=== PATIENT | male | born 1980 | race Caucasian/White ===

== ENCOUNTER → 2021-08-05 08:37 | Outpatient (CLI) | payer OTHER, SELFPAY ==
--- NOTE | 2021-08-05 | DI.NM.S_ITS ---
PROCEDURE: NM BONE SCAN LIMITED AREA RADIOPHARMACEUTICAL: 18.1 mCi Tc-99m MDP IV. INDICATIONS: PAIN IN LEFT HIP TECHNIQUE: Multiple delayed bone scintigrams of the body part of interest were obtained approximately 3 hours after intravenous injection of Tc-99m MDP. COMPARISON: None. FINDINGS: There is symmetric low-level increased uptake in hips, compatible with mild degenerative joint disease. 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 Recommend radiographic correlation. Dictated by: Karthikeyan Lowery M.D. on 08/05/2021 at 15:38 Approved by: Karthikeyan Lowery M.D. on 08/05/2021 at 15:40
== END ==
PROVIDERS: PCP Student in an Organized Health Care Education/Training Program
DX: M25.552 Pain in left hip (principal); M16.0 Bilateral primary osteoarthritis of hip
CPT/HCPCS: 78300; A9503

== ENCOUNTER 2023-12-29 15:18 | Emergency (ER) | payer OTHER, SELFPAY ==
[2023-12-29 15:25] VITALS: BP 120/77; PULSE 65; RESP 16; TEMP 36.8; O2SAT 100; BMI 28.0
[2023-12-29 15:49] LABS: Add Manual Diff / Slide Review NO; Basophils Absolute Auto 0 /uL (0-100); Basophils Percent Auto 0.2 % (0-2); Eosinophils Absolute Auto 0 /uL (0-450); Eosinophils Percent Auto 0.1 % (2-4); Hemoglobin 14.4 g/dL (13.5-17.5); Lymphocytes Absolute Auto 900 /uL (1100-4500); Mean Corpuscular HGB Conc 34.2 % (30-36); Mean Corpuscular Volume 93.5 fL (80-100); Monocytes Absolute Auto 500 /uL (0-900); Monocytes Percent Auto 3.8 % (3-14); Neutrophils Absolute Auto 11200 /uL (1500-7000); Neutrophils Percent Auto 88.9 % (50-75); Platelet Count 293 X10^3/uL (150-400); Red Blood Cell Count 4.49 X10^6/uL (4.5-5.9); Red Cell Distribution Width 12.3 % (11.6-14.8); White Blood Cell Count 12.6 X10^3/uL (4.5-11.0)
[2023-12-29 15:55] LABS: INR 0.9 (0.9-1.3); Prothrombin Time 10.8 SECONDS (9.4-12.5)
[2023-12-29 15:58] LABS: PTT Partial Thromboplastin Tim 27 SECONDS (25.1-36.5)
[2023-12-29 15:59] LABS: Alanine Aminotransferase 55 IU/L (<50); Albumin 4.8 g/dL (3.5-5.0); Albumin Globulin Ratio 1.7 (1.0-2.8); Alkaline Phosphatase 54 U/L (38-126); Aspartate Aminotransferase 35 IU/L (17-59); BUN Creatinine Ratio 18.1 (6-22); Bilirubin Total 0.7 mg/dL (0.2-1.3); Blood Urea Nitrogen 17 mg/dL (9-20); Calcium 9.2 mg/dL (8.4-10.2); Carbon Dioxide 24 mmol/L (22-32); Chloride 104 mmol/L (98-107); Estimated Glomerular Filt Rate > 60 mL/min (>60); Globulin 2.9 g/dL (1.7-4.1); Glucose 115 mg/dL (70-100); HEMOLYSIS < 15 (0-50); Potassium 4.3 mmol/L (3.4-5.1); Sodium 136 mmol/L (137-145); Total Protein 7.7 g/dL (6.3-8.2)
--- NOTE | 2023-12-29 16:18 | PC.NURSE ---
Pt stated that he noted 2 tablespoons of blood in toilet with bowel movement. Pt reports some abdominal cramping. History of IBS. History of anal fissures. Colonoscopy around age of 18; pt states he has not had a recent colonoscopy.
[2023-12-29] MEDS: PANTOPRAZOLE 40 MG VIAL 80 MG IV (16:55)
--- NOTE | 2023-12-29 17:40 | ED_ITS ---
HPI - GI Bleed General Chief complaint: GI Bleed Stated complaint: snt by [facility], cramps, hot flashes, red bm Time Seen by Provider: 12/29/23 17:40 History of Present Illness HPI Narrative: Patient is a healthy 43-year-old male presenting today with rectal bleeding. He reports this morning he had a bowel movement that was blood streaked he had a 2nd bowel movement that got more bloody and now he is just having blood. He is some mild left lower quadrant pain. No nausea vomiting or fever. No diarrhea no one else is sick at home. He does have a remote history of IBS he had a colonoscopy many years ago. Related Data Previous Rx's Medication Instructions Recorded ciprofloxacin HCl 500 mg tablet 500 mg PO BID #14 tabs 12/29/23 (Cipro) metronidazole 500 mg tablet 500 mg PO Q8H 7 days #21 tabs 12/29/23 Allergies Allergy/AdvReac Type Severity Reaction Status Date / Time No Known Drug Allergies Allergy Verified 12/29/23 15:25 Exam Initial Vital Signs Initial Vital Signs: Vital Signs Temperature 98.3 F 12/29/23 15:25 Pulse Rate 65 12/29/23 15:25 Respiratory Rate 16 12/29/23 15:25 Blood Pressure 120/77 12/29/23 15:25 Pulse Oximetry 100 12/29/23 15:25 Oxygen Delivery Method Room Air 12/29/23 15:25 GENERAL: Alert well-appearing 43-year-old male and in no acute distress. HEENT: Head atraumatic,EOMI, pupils reactive, face symmetric, moist mucous membranes CARDIOVASCULAR: Regular rate and rhythm without murmurs, rubs or gallops. RESPIRATORY: Breath sounds equal bilaterally, no wheezes rales or rhonchi. ABDOMEN: Soft, mildly tender left lower quadrant RECTAL: Gross blood no hemorrhoids EXTREMITIES: Normal range of motion, no clubbing or edema. Neurovascularly intact NEUROLOGICAL: Alert and oriented x4.Normal gait and speech. SKIN: Warm, dry, no laceration, no petechiae, no rashes or lesions. Course Orders Ordered: Discontinued Medications Ondansetron HCl (Ondansetron 4 Mg/2 Ml Inj) 4 mg IV NOW PRN PRN Reason: Nausea And Vomiting Ondansetron HCl (Ondansetron 4 Mg Odt) 4 mg SL NOW PRN PRN Reason: Nausea And Vomiting Pantoprazole Sodium (Pantoprazole 40 Mg Vial) 80 mg IV NOW ONE Stop: 12/29/23 15:29 Last Admin: 12/29/23 16:55 Dose: 80 mg Documented By: MARLI Vital Signs Vital signs: Vital Signs - 8 hr 12/29/23 15:25 Temperature 98.3 F Pulse Rate 65 Respiratory Rate 16 Blood Pressure 120/77 Pulse Oximetry 100 Oxygen Delivery Method Room Air MDM - GI Bleed Lab Data 12/29/23 15:40 12/29/23 15:40 Labs: Lab Results 12/29/23 12/29/23 Range/Units 15:40 17:09 WBC 12.6 H (4.5-11.0) X10^3/uL RBC 4.49 L (4.5-5.9) X10^6/uL Hgb 14.4 (13.5-17.5) g/dL Hct 42.0 (41-53) % MCV 93.5 (80-100) fL MCH 32.0 (26-34) PG MCHC 34.2 (30-36) % RDW 12.3 (11.6-14.8) % Plt Count 293 (150-400) X10^3/uL Neut % (Auto) 88.9 H (50-75) % Lymph % (Auto) 7.0 L (25-40) % Angelina % (Auto) 3.8 (3-14) % Eos % (Auto) 0.1 L (2-4) % Baso % (Auto) 0.2 (0-2) % Neut # (Auto) 37440 H (2602-8201) /uL Lymph # (Auto) 900 L (1586-0460) /uL Angelina # (Auto) 500 (0-900) /uL Eos # (Auto) 0 (0-450) /uL Baso # (Auto) 0 (0-100) /uL PT 10.8 (9.4-12.5) SECONDS INR 0.9 (0.9-1.3) APTT 27 (25.1-36.5) SECONDS Sodium 136 L (137-145) mmol/L Potassium 4.3 (3.4-5.1) mmol/L Chloride 104 (98-107) mmol/L Carbon Dioxide 24 (22-32) mmol/L BUN 17 (9-20) mg/dL Creatinine 0.94 (0.66-1.25) mg/dL Estimated GFR > 60 (>60) mL/min BUN/Creatinine Ratio 18.1 (6-22) Glucose 115 H (70-100) mg/dL Calcium 9.2 (8.4-10.2) mg/dL Total Bilirubin 0.7 (0.2-1.3) mg/dL AST 35 (17-59) IU/L ALT 55 H (<50) IU/L Alkaline Phosphatase 54 (38-126) U/L Total Protein 7.7 (6.3-8.2) g/dL Albumin 4.8 (3.5-5.0) g/dL Globulin 2.9 (1.7-4.1) g/dL Albumin/Globulin Ratio 1.7 (1.0-2.8) Stl C. cayetanensis PCR Not detected (Not Detect) Stool Rotavirus (PCR) Not detected (Not Detect) Stool Adenovirus (PCR) Not detected (Not Detect) Stool Astrovirus (PCR) Not detected (Not Detect) Stool Cryptosporidium PCR Not detected (Not Detect) Stl E.coli Shiga Tox PCR Not detected (Not Detect) St Sh/Enteroin Ecoli PCR Not detected (Not Detect) Stl Enterotoxigenic E PCR Not detected (Not Detect) Stool EPEC (PCR) Not detected (Not Detect) Stl E. histolytica PCR Not detected (Not Detect) Stool Giardia Lamblia PCR Not detected (Not Detect) Stool Sapovirus (PCR) Not detected (Not Detect) Stl P. shigelloides PCR Not detected (Not Detect) St Y.enterocolitica PCR Not detected (Not Detect) Stool Vibrio (PCR) Not detected (Not Detect) Stl Vibrio cholerae PCR Not detected (Not Detect) Stl Enteroaggr Ecoli PCR Not detected (Not Detect) Stl Norovirus GI/GII PCR Not detected (Not Detect) Campylobacter (PCR) Not detected (Not Detect) C. difficile Tox (PCR) Not detected (Not Detect) Salmonella (PCR) Not detected (Not Detect) Blood Type Cancelled Antibody Screen Cancelled Point of Care Testing Stool Occult Blood Positive Urine Dip Bedside Urine Glucose Negative Bedside Urine Bilirubin - Negative Bedside Urine Ketone - Negative Urine Specific [place] 1.015 Bedside Urine Occult Blood - Negative Bedside Urine pH 6.0 Bedside Urine Protein - Negative Bedside Urine Urobilinogen - Negative Bedside Urine Nitrite - Negative Bedside Urine Leukocytes - Negative Esterase Imaging Data CT scan - abdomen/pelvis: Radiologist's Impression: PROCEDURE: CT ANGIO ABD/PEL GI BLEED INDICATIONS: GI Bleed TECHNIQUE: After the administration of intravenous contrast, 2.5 mm thick sections acquired from the diaphragm to the symphysis. 10 mm maximum-intensity projection (MIP) reformats were then acquired. For radiation dose reduction, the following was used: automated exposure control. COMPARISON: None. FINDINGS: Lower thorax: The lung bases are clear. Heart size normal. No hiatal hernia. Liver: The liver is diffusely decreased in attenuation without focal mass lesion. Biliary system: Cholelithiasis No intra or extrahepatic bile duct dilatation. Pancreas: Unremarkable without mass or inflammation evident. Spleen: Normal in size and density. Adrenals: Normal morphology and density. Reproductive system: Unremarkable as visualized. Urinary system: Normal renal size and attenuation. No renal calculi, hydronephrosis, or solid mass present. Urinary bladder unremarkable. Gastrointestinal system: There is long segment wall thickening involving the descending colon with mild suggestion of pericolonic inflammatory change. No abscess or obstruction. No free air. Appendix: Normal appendix identified. No evidence of appendicitis. Peritoneal spaces: No mesenteric or retroperitoneal adenopathy. No free air. No free fluid. Vasculature: The aorta and origins of the celiac, SMA HERO as well as both renal arteries are widely patent without atherosclerotic vascular disease Abdominal wall: Bilateral inguinal hernia(s) contain fat without bowel involvement. Musculoskeletal: Normal bone mineralization. No acute fractures. IMPRESSION: Normal CT angiogram of the abdomen and pelvis. No evidence of atherosclerotic disease or stenosis. No aneurysm or dissection. No evidence of active bleeding. Mild colitis involving the left colon. No abscess or pneumatosis. No bowel obstruction. Approved by: Ellis Varma M.D. on 12/29/2023 at 17:52 MDM Narrative Medical decision making narrative: MDM CC: Rectal bleeding Complicating co-morbidities: Very remote history of IBS Medical records reviewed: No prior Differential considered: Gastroenteritis diverticulitis polyp, colon cancer, IBS Exam documented above, pertinent findings include: Gross blood per rectum no hemorrhoids present mild left lower quadrant pain no guarding or rebound Lab Test results independently reviewed as above. Pertinent findings: CBC WBC 12.6 hemoglobin 14.4 hematocrit 42 platelets 293 CMP no electrolyte abnormality no MODESTA sodium 136 potassium 4.3 chloride 104 carbon dioxide 24 creatinine 0.9 Bilirubin 0.7 liver enzymes within normal limits PT 10.8 INR 0.9 GI panel negative Imaging studies independently reviewed: Mild colitis of left colon Consultations: none Treatments: protonix Re-evaluations: Patient had 1 episode of bright red blood which was collected and sent down for GI panel. Was very small amount quarter-size Discussion: 43-year-old male presenting today with rectal bleeding that started today only. He has had no significant amounts of blood loss he did have some blood his stool. No hemorrhoids. He is some mild left lower quadrant pain. Blood work is overall reassuring he has not anemic no significant leukocytosis CT shows mild colitis of left colon which is consistent with exam. Will treat him with some antibiotics. He has follow-up appointment with primary care provider for an annual physical in a week or 2. Recommended outpatient colonoscopy which he fully understands. Discharge Plan Departure Patient Disposition: Home Clinical Impression: Colitis Instructions: DI for Colitis Activity Restrictions/Additional Instructions: *You have been diagnosed with colitis *What to do: At this time you do need an outpatient colonoscopy. I do suspect that bleeding will slow down for you. However please continue to monitor *Continue to take medications as directed Cipro 500 mg twice a day for 7 days Flagyl 500 mg 3 times a day for 7 days *Follow up with your primary care provider in 2-3 days or call [phone] *Return to ER if you should have increasing bleeding pain dizziness lightheadedness or passing out [or] any new, worsening or concerning symptoms Prescriptions: New metronidazole 500 mg tablet 500 mg PO Q8H 7 Days Qty: 21 0RF ciprofloxacin HCl [Cipro] 500 mg tablet 500 mg PO BID Qty: 14 0RF Referrals: José Atkinson [Primary Care Provider] - Stand Alone Forms: Patient Portal/API
--- NOTE | 2023-12-29 17:49 | DI.CT.S_ITS ---
PROCEDURE: CT ANGIO ABD/PEL GI BLEED INDICATIONS: GI Bleed TECHNIQUE: After the administration of intravenous contrast, 2.5 mm thick sections acquired from the diaphragm to the symphysis. 10 mm maximum-intensity projection (MIP) reformats were then acquired. For radiation dose reduction, the following was used: automated exposure control. COMPARISON: None. FINDINGS: Lower thorax: The lung bases are clear. Heart size normal. No hiatal hernia. Liver: The liver is diffusely decreased in attenuation without focal mass lesion. Biliary system: Cholelithiasis No intra or extrahepatic bile duct dilatation. Pancreas: Unremarkable without mass or inflammation evident. Spleen: Normal in size and density. Adrenals: Normal morphology and density. Reproductive system: Unremarkable as visualized. Urinary system: Normal renal size and attenuation. No renal calculi, hydronephrosis, or solid mass present. Urinary bladder unremarkable. Gastrointestinal system: There is long segment wall thickening involving the descending colon with mild suggestion of pericolonic inflammatory change. No abscess or obstruction. No free air. Appendix: Normal appendix identified. No evidence of appendicitis. Peritoneal spaces: No mesenteric or retroperitoneal adenopathy. No free air. No free fluid. Vasculature: The aorta and origins of the celiac, SMA HERO as well as both renal arteries are widely patent without atherosclerotic vascular disease Abdominal wall: Bilateral inguinal hernia(s) contain fat without bowel involvement. Musculoskeletal: Normal bone mineralization. No acute fractures. IMPRESSION: Normal CT angiogram of the abdomen and pelvis. No evidence of atherosclerotic disease or stenosis. No aneurysm or dissection. No evidence of active bleeding. Mild colitis involving the left colon. No abscess or pneumatosis. No bowel obstruction. Approved by: Ellis Varma M.D. on 12/29/2023 at 17:52
[2023-12-29 18:32] LABS: Adenovirus F 40/41 Not Detected (Not Detect); Astrovirus Not Detected (Not Detect); Campylobacter Not Detected (Not Detect); Clostridium difficile toxin AB Not Detected (Not Detect); Cryptosporidium Not Detected (Not Detect); Cyclospora cayetanensis Not Detected (Not Detect); Entamoeba histolytica Not Detected (Not Detect); Enteroaggregative E.coli Not Detected (Not Detect); Enteropathogenic E.coli Not Detected (Not Detect); Enterotoxigenic E.coli It/st Not Detected (Not Detect); Giardia lamblia Not Detected (Not Detect); Norovirus GI/GII Not Detected (Not Detect); Plesiomonsa shigelloides Not Detected (Not Detect); Rotavirus A Not Detected (Not Detect); Salmonella Not Detected (Not Detect); Sapovirus Not Detected (Not Detect); Shiga-like toxin-prod E.coli Not Detected (Not Detect); Shigella/Enteroinvasive E.coli Not Detected (Not Detect); Vibrio Not Detected (Not Detect); Vibrio cholerae Not Detected (Not Detect); Yersinia enterocolitica Not Detected (Not Detect)
[2023-12-29 19:22] VITALS: BP 123/78; PULSE 65; RESP 18; TEMP 36.9; O2SAT 98
== END 2023-12-29 19:23 | disposition home or self-care (01) ==
PROVIDERS: Emergency Provider Emergency Medicine; PCP Student in an Organized Health Care Education/Training Program
DX: K52.9 Noninfective gastroenteritis and colitis, unspecified (principal); R10.32 Left lower quadrant pain; R79.89 Other specified abnormal findings of blood chemistry
CPT/HCPCS: 36415; 74174; 80053; 81003; 82272; 85025; 85610; 85730; 87507; 96374; 99284; J2470; Q9967